=== PATIENT | female | born 1950 | race Caucasian/White ===

== ENCOUNTER 2017-02-07 07:31 | Inpatient (IN) | payer OTHER ==
[~2017-02-07] VITALS: Ht 154.9 cm; Wt 108.9 kg
[~2017-02-07 07:31] MED LIST: ADVAIR 100/501 DISK IH; ATIVAN0.5 MG PO; BYSTOLIC10 MG PO; CARDIZEM CD360 MG PO; CIPROFLOXACIN500 M1 PO; DICYCLOMINE HCL20 MG PO; DIOVAN HCT 31 TABLE1 PO; EDLUAR5 MG SL; ELIQUIS5 MG PO; FUROSEMIDE20 MG PO; IBUPROFEN600 MG PO; K-DUR20 MEQ PO; LIPITOR40 MG PO; METFORMIN HCL500 M1 PO; METOPROLOL SUCC50 MG PO; NEXIUM40 MG PO; OXYCODONE HCL5 MG PO; PROMETHAZINE HC25 M1 PO; PROVENTIL HFA6.7 GM IH; VALSARTAN-HCTZ1 EAC2 PO; ZANTAC300 MG PO; ZOSTAVAX V19400 UNIT SC
[2017-02-07 08:35] LABS: EOSINOPHIL (%) 2.3 % (0-5); EOSINOPHIL COUNT 0.2 K/uL (0-0.3); HEMATOCRIT 43.2 % (36.0-46.0); IMMATURE GRANULOCYTE (%) 0.4 % (0.0-0.7); INSTRUMENT ABS NEUTROPHIL CT 7.1 K/uL; LYMPHOCYTE COUNT 1.3 K/uL (1.0-2.8); MCH 30.4 PG (29.0-34.0); MCHC 32.4 G/DL (30.0-36.0); MCV 93.9 FL (83-99); MEAN PLAT.VOLUME 11.4 uM^3 (9.5-12.4); MONOCYTE (%) 9.1 % (3-12); MONOCYTE COUNT 0.9 K/uL (0-0.8); NEUTROPHIL (%) 74.5 % (45-76); NEUTROPHIL COUNT 7.1 K/uL (1.8-6.4); PLATELET COUNT 141 K/uL (156-360); RBC DIS.WIDTH-CV 13.6 % (11.8-14.6); RBC DIS.WIDTH-SD 46.7 % (39-53); WHITE BLOOD COUNT 9.5 K/uL (4.1-10.2)
[2017-02-07 08:43] LABS: CHLORIDE 106 mEq/L (99-109); POTASSIUM 3.8 mEq/L (3.7-5.4); SODIUM 140 mEq/L (136-147)
[2017-02-07 08:45] LABS: GLUCOSE 116 mg/dL (70-99)
[2017-02-07 08:46] LABS: ANION GAP 11 MEQ/L (2-14)
[2017-02-07 08:47] LABS: TOTAL BILIRUBIN 0.9 mg/dL (0.0-1.0)
[2017-02-07 08:48] LABS: ALKALINE PHOSPHATASE 149 IU/L (3-129)
[2017-02-07 08:49] LABS: GFR ESTIMATE (CALCULATED) > 59 mL/min/
[2017-02-07 08:50] LABS: UREA NITROGEN (BUN) 10 mg/dL (9-23)
[2017-02-07 08:52] LABS: LIPASE 16 U/L (1.0-51.0)
[2017-02-07] MEDS ORDERED: METFORMIN HCL500 M1 PO (13:34)
[2017-02-07] MEDS ORDERED: ATORVASTATIN CA40 MG PO (13:35)
[2017-02-07] MEDS ORDERED: TRAMADOL HCL50 MG PO (13:35)
[2017-02-07 17:04] VITALS: BP 142/87
[2017-02-07 19:57] VITALS: BP 113/75
[2017-02-07 21:31] LABS: POINT-OF-CARE METER ID UU14208750
[2017-02-07 23:35] VITALS: BP 135/99
[2017-02-08 03:14] VITALS: BP 132/88
[2017-02-08 06:25] LABS: POINT-OF-CARE METER ID UU14208750
[2017-02-08 07:00] LABS: HEMATOCRIT 43.1 % (36.0-46.0); MCH 30.2 PG (29.0-34.0); MCHC 30.9 G/DL (30.0-36.0); MCV 97.7 FL (83-99); MEAN PLAT.VOLUME 11.2 uM^3 (9.5-12.4); PLATELET COUNT 149 K/uL (156-360); RBC DIS.WIDTH-CV 13.7 % (11.8-14.6); RBC DIS.WIDTH-SD 49.6 % (39-53); RED BLOOD COUNT 4.41 M/uL (3.80-5.20); WHITE BLOOD COUNT 8.6 K/uL (4.1-10.2)
[2017-02-08 07:23] LABS: ANION GAP 6 MEQ/L (2-14); CHLORIDE 108 MEQ/L (99-109); GFR ESTIMATE (CALCULATED) > 59 mL/min/; GLUCOSE 88 mg/dL (70-99); LIPASE 7 U/L (1.0-51.0); SAMPLE HEMOLYSIS CHECK 0; SAMPLE ICTERIC CHECK 0; SAMPLE LIPEMIA CHECK 0; SODIUM 141 MEQ/L (136-147); UREA NITROGEN (BUN) 10 mg/dL (9-23)
[2017-02-08 08:09] LABS: TROP-I INTERPRETATION NEGATIVE; TROPONIN-I < 0.01 ng/mL (0.0-0.30)
[2017-02-08 11:20] VITALS: BP 128/60
[2017-02-08 14:32] LABS: TROP-I INTERPRETATION NEGATIVE; TROPONIN-I < 0.01 ng/mL (0.0-0.30)
[2017-02-08 15:20] VITALS: BP 133/21
[2017-02-08 20:12] VITALS: BP 122/58
[2017-02-08 21:33] LABS: TROP-I INTERPRETATION NEGATIVE; TROPONIN-I < 0.01 ng/mL (0.0-0.30)
[2017-02-08 23:43] VITALS: BP 108/68
[2017-02-09] VITALS (8 sets, daily range): BP systolic 105–134; BP diastolic 56–88
[2017-02-09 06:24] LABS: EOSINOPHIL (%) 0.1 % (0-5); HEMATOCRIT 36.9 % (36.0-46.0); IMMATURE GRANULOCYTE (%) 0.6 % (0.0-0.7); IMMATURE GRANULOCYTE COUNT 0.1 K/uL; INSTRUMENT ABS NEUTROPHIL CT 8.4 K/uL; LYMPHOCYTE COUNT 0.9 K/uL (1.0-2.8); MCH 31.4 PG (29.0-34.0); MCHC 31.7 G/DL (30.0-36.0); MCV 98.9 FL (83-99); MEAN PLAT.VOLUME 11.3 uM^3 (9.5-12.4); MONOCYTE (%) 13.6 % (3-12); MONOCYTE COUNT 1.5 K/uL (0-0.8); NEUTROPHIL (%) 76.9 % (45-76); NEUTROPHIL COUNT 8.4 K/uL (1.8-6.4); PLATELET COUNT 168 K/uL (156-360); RBC DIS.WIDTH-CV 13.8 % (11.8-14.6); RBC DIS.WIDTH-SD 50.5 % (39-53); RED BLOOD COUNT 3.73 M/uL (3.80-5.20); WHITE BLOOD COUNT 10.9 K/uL (4.1-10.2)
[2017-02-09 06:56] LABS: ALKALINE PHOSPHATASE 152 IU/L (3-129); ANION GAP 7 MEQ/L (2-14); CHLORIDE 107 MEQ/L (99-109); GFR ESTIMATE (CALCULATED) > 59 mL/min/; GLUCOSE 126 mg/dL (70-99); POTASSIUM 4.3 MEQ/L (3.7-5.4); SAMPLE HEMOLYSIS CHECK 0; SAMPLE ICTERIC CHECK 0; SAMPLE LIPEMIA CHECK 0; SODIUM 139 MEQ/L (136-147); UREA NITROGEN (BUN) 19 mg/dL (9-23)
[2017-02-10 04:16] VITALS: BP 132/78
[2017-02-10 04:51] VITALS: BP 126/71
[2017-02-10 08:01] VITALS: BP 166/76
[2017-02-10 08:10] LABS: EOSINOPHIL (%) 1.9 % (0-5); EOSINOPHIL COUNT 0.1 K/uL (0-0.3); HEMATOCRIT 39.2 % (36.0-46.0); IMMATURE GRANULOCYTE (%) 0.4 % (0.0-0.7); INSTRUMENT ABS NEUTROPHIL CT 5.8 K/uL; LYMPHOCYTE COUNT 0.8 K/uL (1.0-2.8); MCHC 31.1 G/DL (30.0-36.0); MCV 96.6 FL (83-99); MEAN PLAT.VOLUME 10.6 uM^3 (9.5-12.4); MONOCYTE (%) 9.3 % (3-12); MONOCYTE COUNT 0.7 K/uL (0-0.8); NEUTROPHIL (%) 77.2 % (45-76); NEUTROPHIL COUNT 5.8 K/uL (1.8-6.4); PLATELET COUNT 171 K/uL (156-360); RBC DIS.WIDTH-CV 13.7 % (11.8-14.6); RED BLOOD COUNT 4.06 M/uL (3.80-5.20); WHITE BLOOD COUNT 7.5 K/uL (4.1-10.2)
[2017-02-10 08:36] LABS: ALKALINE PHOSPHATASE 147 IU/L (3-129); ANION GAP 8 MEQ/L (2-14); CHLORIDE 109 MEQ/L (99-109); GFR ESTIMATE (CALCULATED) > 59 mL/min/; GLUCOSE 106 mg/dL (70-99); SAMPLE HEMOLYSIS CHECK 0; SAMPLE ICTERIC CHECK 0; SAMPLE LIPEMIA CHECK 0; SODIUM 138 MEQ/L (136-147); TOTAL BILIRUBIN 0.8 MG/DL (0.0-1.0); UREA NITROGEN (BUN) 11 mg/dL (9-23)
[2017-02-10 11:34] VITALS: BP 156/71
== END 2017-02-10 13:18 | disposition home or self-care (01) | DRG 439 ==
LOC: EME 07:31 → EDOF 13:24 → 2EAST 13:24 → ENRESERV 13:26 → 2EAST 16:45
PROVIDERS: Emergency Medicine; Hospitalist; Internal Medicine
DX: K85.90 Acute pancreatitis without necrosis or infection, unspecified (principal); Z68.42 Body mass index [BMI] 45.0-49.9, adult; D69.6 Thrombocytopenia, unspecified; I48.2 Chronic atrial fibrillation; E66.01 Morbid (severe) obesity due to excess calories; E11.22 Type 2 diabetes mellitus with diabetic chronic kidney disease; F41.9 Anxiety disorder, unspecified; E78.5 Hyperlipidemia, unspecified; N18.3 Chronic kidney disease, stage 3 (moderate); K21.9 Gastro-esophageal reflux disease without esophagitis; K52.9 Noninfective gastroenteritis and colitis, unspecified; J44.9 Chronic obstructive pulmonary disease, unspecified; I12.9 Hypertensive chronic kidney disease with stage 1 through stage 4 chronic kidney disease, or unspecified chronic kidney disease; K86.1 Other chronic pancreatitis; E03.9 Hypothyroidism, unspecified; Z87.11 Personal history of peptic ulcer disease; Z87.891 Personal history of nicotine dependence; Z79.01 Long term (current) use of anticoagulants; Z82.49 Family history of ischemic heart disease and other diseases of the circulatory system; Z90.49 Acquired absence of other specified parts of digestive tract
CPT/HCPCS: 71010; 74177; 80048; 80053; 82565; 82948; 83690; 84484; 84520; 85025; 85027; 93005; 94640; 94640 76; 94799; 99202; 99281; 99285; J1170; J1815; J2270; J2405; J2765; J3010; J7030; S0028

== ENCOUNTER 2017-11-14 10:16 | Emergency (ER) | payer OTHER ==
[~2017-11-14] VITALS: Ht 154.9 cm; Wt 108.9 kg
[~2017-11-14 10:16] MED LIST changes: +ATORVASTATIN CA40 MG PO; +TRAMADOL HCL50 MG PO
[2017-11-14 10:55] LABS: HEMATOCRIT 45.1 % (36.0-46.0); HEMOGLOBIN 14.7 G/DL (11.9-15.5); MCH 30.8 PG (29.0-34.0); MCHC 32.6 G/DL (30.0-36.0); MCV 94.5 FL (83-99); RBC DIS.WIDTH-CV 13.9 % (11.8-14.6); RBC DIS.WIDTH-SD 48.6 % (39-53); RED BLOOD COUNT 4.77 M/uL (3.80-5.20); WHITE BLOOD COUNT 9.4 K/uL (4.1-10.2)
[2017-11-14 11:31] LABS: APPEARANCE CLEAR ((CLEAR)); BILIRUBIN NEGATIVE; BLOOD LARGE; COLOR YELLOW ((YELLOW)); GLUCOSE (STRIP) NEGATIVE; KETONES NEGATIVE; LEUKOCYTES LARGE; NITRITE NEGATIVE; PROTEIN (STRIP) NEGATIVE; UROBILINOGEN 0.2 MG/DL (0.2-1.0)
[2017-11-14 11:42] LABS: PLAT.SUFFICIENCY ADEQUATE; PLATELET COUNT 203 K/uL (156-360)
[2017-11-14 11:42] LABS: BACTERIA NONE SEEN /HPF; EPITHELIAL CELLS RARE /HPF; MUCUS TRACE /LPF; RED BLOOD CELLS 0-5 /HPF (0-5); UCUL ADDED? YES
[2017-11-14 11:45] LABS: ALBUMIN 3.5 G/DL (3.2-4.8); ALKALINE PHOSPHATASE 155 IU/L (3-129); ALT (GPT) 9 IU/L (3-49); AST (GOT) 16 IU/L (2-34); CHLORIDE 104 MEQ/L (99-109); CREATININE 0.6 MG/DL (0.6-1.3); GFR ESTIMATE (CALCULATED) > 59 mL/min/; GLUCOSE 117 mg/dL (70-99); LIPASE 6 U/L (1.0-51.0); POTASSIUM 4.4 MEQ/L (3.7-5.4); SODIUM 138 MEQ/L (136-147); TOTAL BILIRUBIN 0.6 MG/DL (0.0-1.0); TOTAL PROTEIN 6.7 G/DL (6.4-8.3); UREA NITROGEN (BUN) 9 mg/dL (9-23)
[2017-11-14] MEDS ORDERED: LEVAQUIN750 MG PO (12:43)
[2017-11-14 13:20] VITALS: BP 109/73
== END 2017-11-14 13:23 | disposition home or self-care (01) ==
LOC: EME 10:16
DX: N39.0 Urinary tract infection, site not specified (principal); J44.9 Chronic obstructive pulmonary disease, unspecified; I10 Essential (primary) hypertension; K21.9 Gastro-esophageal reflux disease without esophagitis; E11.9 Type 2 diabetes mellitus without complications; F32.9 Major depressive disorder, single episode, unspecified; I48.91 Unspecified atrial fibrillation; Z79.01 Long term (current) use of anticoagulants; Z87.891 Personal history of nicotine dependence; Z79.84 Long term (current) use of oral hypoglycemic drugs; Z90.49 Acquired absence of other specified parts of digestive tract; Z88.5 Allergy status to narcotic agent
CPT/HCPCS: 80053; 81003; 83690; 85027; 87086; 99281; 99285; J0780; J3010; J7030